=== PATIENT | female | born 1975 | race Caucasian/White ===

== ENCOUNTER → 2021-11-25 | Outpatient (CLI) | payer OTHER ==
--- NOTE | 2021-11-25 13:22 | KCIC ---
EXAM: Lumbar spine, 3 views. HISTORY: Pain. COMPARISON: None. FINDINGS: 3 views of the lumbar spine are obtained. There is mild lumbar dextroscoliosis. There is no listhesis. There is mild multilevel endplate remodeling. There is an IUD overlying the pelvis to the left of midline. IMPRESSION: Mild multilevel endplate remodeling. Mild scoliosis. Electronically signed by: Triny Dey MD (11/25/2021 1:20 PM) [id number]
== END ==
LOC: KCIC 12:27
PROVIDERS: ATTEND Registered Nurse
DX: M41.86 Other forms of scoliosis, lumbar region (principal); M54.42 Lumbago with sciatica, left side
CPT/HCPCS: 72100